=== PATIENT | male | born 1960 | race Caucasian/White ===

== ENCOUNTER 2025-05-22 18:51 | Emergency (ER) | payer MEDICARE, SELFPAY ==
[2025-05-22 19:00] VITALS: BP 142/95
[2025-05-22] MEDS: BENADRYL 50 MG PO (20:20)
[2025-05-22 20:40] VITALS: BP 177/85; BMI 30.1
--- NOTE | 2025-05-22 21:26 | ED.SKININJ ---
HPI-Injury
General
Chief Complaint: Bite
Source: patient
Exam Limitations: none
Time Seen by Provider: 05/22/25 20:56
Nursing documentation reviewed up to this point in time: agreed with
History of Present Illness-Injury
Is this injury a work related problem?: No
Is pt an associate of [facility]?: No
Initial Injury comments:
64-year-old male presenting to the emergency department after sustaining multiple bee stings in the legs and arms as well as on the scrotum. Has had significant swelling denies any trouble swallowing or breathing denies abdominal pain nausea
vomiting or diarrhea. No lightheadedness.
Past History
Past History
ED Past Medical History: None
ED Past Surgical History: None
Social History
Tobacco: Non-smoker
Personal:
Living: with family
Employment: Employed
Family History
Family History: Negative Early CAD
Review of Systems
Review of Systems
Allergies reviewed?: Yes
All Other Systems: ROS reviewed and negative except as documented in HPI and ROS
Phy Exam
Physical Exam
Physical Exam:
GENERAL: Alert , in no apparent distress
EYE: pupils equal and reactive
NECK: Supple, no significant adenopathy.
ENT: o/p clr, mmm.
CARDIAC: Regular rate and rhythm .
LUNGS: Clear breath sounds bilaterally, no acute respiratory distress, no wheezes/rales/rhonchi
ABDOMEN: Soft, without focal tenderness, no r/g, no cvat
NEUROLOGICAL: Alert and oriented, no focal neuro deficits
SKIN: Redness and swelling to the lateral right foot as well as the lateral right hand right upper back roughly 10 cm in diameter in each area. No significant tenderness. No stingers were visualized warm and dry, skin intact.
MUSCULOSKELETAL: No edema, well perfused.
PSYCH: Normal and appropriate interaction.
Course
Orders/Labs/Results
Orders:
Orders
05/22/25 20:18
Diphenhydramine [Benadryl] 50 mg .ROUTE .STK-MED ONE
05/22/25 20:20
Diphenhydramine [Benadryl] 50 mg PO NOW STA
05/22/25 21:20
Dexamethasone [Decadron] 10 mg PO NOW STA
Vital Signs
Initial and Last Documented VS:
Initial Vital Signs
Temp Pulse Resp BP Pulse Ox
97.8 F 101 18 142/95 100
05/22/25 19:00 05/22/25 19:00 05/22/25 19:00 05/22/25 19:00 05/22/25 19:00
Last Documented Vital Signs
Temp Pulse Resp BP Pulse Ox
97.8 F 67 18 177/85 98
05/22/25 19:00 05/22/25 20:40 05/22/25 20:40 05/22/25 20:40 05/22/25 20:40
MDM/Problems Addressed
MDM/Problems Addressed:
64-year-old male presenting to the emergency department today with concerns of red itchy rash scattered after while mowing his lawn prior to arrival. Here there is no mucous membrane involvement no swelling to the mouth or throat lungs are clear no
airway involvement no GI involvement no evidence of anaphylaxis at this time. Plan for treatment with adjunctive measures and otherwise stable for discharge. Return precautions given.
*Pulse Oximetry
SaO2: 98
Oxygen Mode of Delivery: Room air
Patient hypoxic: no (98)
*Critical Care Note
Total Time (30-74mins, 75-104mins- exclusive of procedures): Not Applicable
ED Attending Note
-
Portions of this chart may have been created with voice recognition software.� Occasional wrong word or��sound alike� substitutions may have occurred due to the inherent limitations of voice recognition software.
Discharge Plan
Departure
Patient Disposition: Home (Routine Discharge)
Date of Disposition: 05/22/25
Time of Disposition: 21:32
Patient with high blood pressure during this ER visit?: No
Condition: Good
Covid-19: Not Applicable
Discharge Problem:
Bee sting
Instructions: Insect Bites and Stings (DC)
Prescriptions:
New
prednisone 20 mg tablet
40 mg PO DAILY 4 Days Qty: 8 0RF
cetirizine [Zyrtec] 10 mg tablet
10 mg PO BID 4 Days Qty: 8 0RF
famotidine 20 mg tablet
20 mg PO BID 4 Days Qty: 8 0RF
epinephrine [Auvi-Q] 0.3 mg/0.3 mL auto-injector
0.3 mg IM Q5-15M PRN (Reason: anaphylaxis) Qty: 2 0RF
No Action
acetaminophen 325 MG tablet
650 mg PO Q4HPRN PRN (Reason: pain)
ascorbic acid (vitamin C) [Vitamin C] 500 MG tablet
500 mg PO DAILY
aspirin 325 MG tablet,delayed release (DR/EC)
325 mg PO DAILY
vitamin B complex 1 TAB tablet
1 tab PO DAILY
Vitamin E
1 tab PO DAILY
Referrals:
UNKNOWN - PT DOES,NOT KNOW [Family Provider]
Activity Restrictions/Additional Instructions:
You came to the emergency department today after bee stings. Please take the prescribed medications to help with any allergic reaction. Return for any worsening, new or concerning symptoms.
Interventions
Interventions:
*Risk Screen - Suicide Last Done: 05/22/25 19:00
*General Assessment Last Done: 05/22/25 19:00
*Neglect/Abuse Screening Last Done: 05/22/25 19:00
*ED- Fall Risk Assessment Last Done: 05/22/25 20:40
*ED COVID-19 Vaccine History Last Done: 05/22/25 20:40
ED-Skin Assessment Last Done: 05/22/25 20:40
Discharge Date and Time
Print Language: LITHUANIAN
[2025-05-22] MEDS: DECADRON 10 MG PO (21:34)
[2025-05-22 21:49] VITALS: BP 154/83
== END 2025-05-22 21:51 | disposition home or self-care (01) ==
LOC: EMR 18:51
PROVIDERS: EMERGENCY PHYSICIAN Emergency Medicine
DX: T63.441A Toxic effect of venom of bees, accidental (unintentional), initial encounter (principal); Y93.H2 Activity, gardening and landscaping; Y92.096 Garden or yard of other non-institutional residence as the place of occurrence of the external cause
CPT/HCPCS: 99283